=== PATIENT | male | born 1970 | race Caucasian/White ===

== ENCOUNTER → 2020-01-08 | Day surgery (SDC) | payer OTHER ==
[~2020-01-08] MED LIST: ACET500T68 PO; ACET650S11 PR; ALPH300C PO; DICY10CA3 PO; FOLI20CA PO; HYDROmorphone 2 MG/ML VIAL IV PRN; IBUP-1027 PO; IBUP-1060 PO; INFL100V3 IV; INSU100I11 SQ; INSU100V8 SQ; IV RINGERS,LACTATED 1000ML 1,000 ML IV SCH; LIPA1CAP13 PO; LORA10CA PO; METF10007 PO; METH2.5T PO; MORPHINE SULFATE 2 MG/ML VIAL. IV PRN; ONDA4TAB7 PO; ONDANSETRON PF 4 MG/2 ML VIAL. IV PRN; OXYC-325 PO; PANT20TA2 PO; PANT40TA77 PO; PROCHLORPERAZINE 10 MG/2 ML VIAL. IV PRN; PROPOFOL 10 MG/ML (20ML) VIAL. IV ONE; SODI104S NS; WARF-31 PO; fentaNYL PF VIAL 100 MCG/2 ML VIAL IV PRN
[2020-01-08 07:29] VITALS: BP 128/83
--- NOTE | 2020-01-08 18:21 | CONS ---
DATE OF CONSULTATION: 01/08/2020 GASTROINTESTINAL CONSULTATION REASON FOR CONSULTATION: Improved oropharyngeal dysphagia, status post Whipple with retained PEG tube. HISTORY OF PRESENT ILLNESS: A 49-year-old male with past medical history which is significant for pancreatic cancer, diabetes, is seen for interval upper endoscopy to assess anatomy as well as for PEG removal. The patient states he has been eating and drinking. Weight has been stable since the surgery. He is otherwise without additional complaints. PAST MEDICAL HISTORY: Significant for diabetes, pancreatic cancer. ALLERGIES: None. MEDICATIONS: Include dicyclomine, folic acid, Renflexis, lipase, loratadine, metformin, methotrexate, and pantoprazole. SOCIAL HISTORY: Presently incarcerated. Does not drink or smoke. FAMILY HISTORY: Significant for non-Hodgkin lymphoma and uterine cancer. REVIEW OF SYSTEMS: Per records. PHYSICAL EXAMINATION: GENERAL: Reveals a well-nourished, well-developed male. VITAL SIGNS: Temperature is 98, pulse 99, respirations 20. LUNGS: Reveal decreased breath sounds. CARDIOVASCULAR: S1, S2 without S3, S4 or appreciable murmur. ABDOMEN: Reveals previous Whipple incision with an intact G-tube. EXTREMITIES: Reveals no cyanosis, clubbing or edema. IMPRESSION: Oropharyngeal dysphagia, improved status post Whipple. I will recommend interval upper endoscopy to assess anatomy as well as a PEG removal. Risks and benefits were discussed with the patient including the risk of perforation during operation. The patient is willing to proceed. RAVEN NOLAND MD DR: ASTRID/jaz JOB#: [id number] / [id number]
== END ==
LOC: ENDOS 06:05 → EEVIPCON 07:00
PROVIDERS: ATTEND Internal Medicine Gastroenterology
DX: K94.29 Other complications of gastrostomy (principal); Z85.46 Personal history of malignant neoplasm of prostate; E11.9 Type 2 diabetes mellitus without complications
CPT/HCPCS: 43247; J2704

== ENCOUNTER 2020-09-03 07:22 | Outpatient (CLI) | payer MEDICAID, OTHER ==
[~2020-09-03] VITALS: Ht 182.9 cm; Wt 119.7 kg
[~2020-09-03 07:22] MED LIST changes: -FOLI20CA PO; +FOLIC ACID20 MG PO; -HYDROmorphone 2 MG/ML VIAL IV PRN; -IV RINGERS,LACTATED 1000ML 1,000 ML IV SCH; -MORPHINE SULFATE 2 MG/ML VIAL. IV PRN; -ONDANSETRON PF 4 MG/2 ML VIAL. IV PRN; -PROCHLORPERAZINE 10 MG/2 ML VIAL. IV PRN; -PROPOFOL 10 MG/ML (20ML) VIAL. IV ONE; -fentaNYL PF VIAL 100 MCG/2 ML VIAL IV PRN
[2020-09-03 08:16] LABS: BASO # 0.1 x10^3/uL (0.0-0.2); BASO % 1 % (0-3); EOS # 0.2 x10^3/uL (0.0-0.7); EOS % 2 % (0-3); HEMATOCRIT 40.2 % (39.0-53.0); HEMOGLOBIN 13.1 g/dL (13.0-17.5); LYMPH # 1.7 x10^3/uL (1.0-4.8); LYMPH % 17 % (24-48); MEAN CORPUSCULAR HEMOGLOBIN 29 pg (25-35); MEAN CORPUSCULAR HGB CONC 33 g/dL (31-37); MEAN CORPUSCULAR VOLUME 89 fL (79-100); MONO # 1.1 x10^3/uL (0.0-1.1); MONO % 11 % (0-9); NEUT # 7.2 x10^3/uL (1.8-7.7); NEUT % 69 % (31-73); PLATELET COUNT 328 x10^3/uL (140-400); RED BLOOD COUNT 4.51 x10^6/uL (4.30-5.70); RED CELL DISTRIBUTION WIDTH 15.4 % (11.5-14.5); WHITE BLOOD COUNT 10.4 x10^3/uL (4.0-11.0)
[2020-09-03] MEDS ORDERED: WARF4TAB64 PO (08:17)
[2020-09-03] MEDS ORDERED: [UNRECOGNIZED DRUG - CODE] SQ ×2 (08:17)
[2020-09-03] MEDS ORDERED: DULO30CA2 PO (08:17)
[2020-09-03 08:18] VITALS: BP 123/80
[2020-09-03] MEDS ORDERED: LIDOCAINE WITH 8.4% SOD BICARB 3 ML DISP.SYRIN. ONE (08:52)
[2020-09-03] MEDS ORDERED: IODIXANOL 320 MG/ML 50ML VIAL. ONE (08:52)
[2020-09-03] MEDS ORDERED: MIDAZOLAM HCL/PF 2 MG/2 ML VIAL. ONE (09:03)
[2020-09-03] MEDS ORDERED: fentaNYL PF VIAL 100 MCG/2 ML VIAL ONE (09:03)
[2020-09-03] MEDS ORDERED: IODIXANOL 320 MG/ML 100 ML VIAL. IART ONE (09:30)
[2020-09-03] MEDS ORDERED: MIDAZOLAM HCL/PF 2 MG/2 ML VIAL. IV ONE (09:30)
[2020-09-03] MEDS ORDERED: LIDOCAINE WITH 8.4% SOD BICARB 3 ML DISP.SYRIN. IJ ONE (09:30)
[2020-09-03] MEDS ORDERED: fentaNYL PF VIAL 100 MCG/2 ML VIAL IV ONE (09:30)
[2020-09-03 09:31] VITALS: BP 126/75
[2020-09-03 09:45] VITALS: BP 135/80
[2020-09-03 10:00] VITALS: BP 112/73
[2020-09-03 10:15] VITALS: BP 114/68
[2020-09-03 10:41] VITALS: BP 116/68
--- NOTE | 2020-09-03 10:48 | NUR ---
PIV dc'd. Pt ambulated and tolerated PO. Pt returned to [facility] with guards.
--- NOTE | 2020-09-03 10:53 | RAD ---
09/03/2020 Procedures: 1. Inferior vena cavogram. 2. Inferior vena cava filter retrieval. The procedure was explained in its entirety to the patient or the patients designated used equipment sales representative by a member of the treatment team, including a discussion of the risks, benefits and commonly accepted alternatives to the procedure, as well as the expected consequences of no therapy whatsoever. Specific risks relating to IVC filter retrieval including inability to remove the filter, filter fracture, filter migration, or caval injury were discussed. Discussion of the risks included, but was not limited to, those that are most frequent and those that are rare but possibly severe or life-threatening, as well as the possibility of unforeseen complications. Ultrasound Guided Access: The right neck was prepped and draped using maximal sterile technique and one percent lidocaine was used for local anesthesia. The right internal jugular vein is identified and is patent. A singlewall puncture was made into the <<right internal jugular vein under ultrasound guidance. An ultrasound image was saved and sent to PACS. Sheath was advanced into the IVC and a venogram obtained. [Normal. IVC filter is identified and there is no thrombus identified.>> IVC filter retrieval: Next, under fluoroscopic guidance, a <<retrieval sheath and [snare>>] were utilized to remove the [place] IVC filter intact without complication. The sheath was removed. Manual pressure was held. No immediate complications were identified. The filter was inspected found to be intact. fluoro time: 2.4 min Total fluoroscopy time: 2.4 min Dose area product: 102 Gycm2 The procedures performed under conscious sedation including continuous cardiopulmonary monitoring via dedicated sedation nurse. [id number] sedation time: 21 Impression: 1. Successful IVC filter removal. 2. Unremarkable Inferior vena cavogram.
== END 2020-09-03 10:50 ==
LOC: INTRAD 07:22
PROVIDERS: ATTEND Internal Medicine Pulmonary Disease
DX: Z45.89 Encounter for adjustment and management of other implanted devices (principal); E11.9 Type 2 diabetes mellitus without complications; M19.90 Unspecified osteoarthritis, unspecified site; G47.30 Sleep apnea, unspecified; Z79.899 Other long term (current) drug therapy; Z79.4 Long term (current) use of insulin; Z87.891 Personal history of nicotine dependence; Z98.890 Other specified postprocedural states
CPT/HCPCS: 36415; 37193; 82962; 85025; 85610; 87426; 99152; C1880; C1892; C9803; J2250; J3010; J3490; Q9967; U0003; 76937; 99153